=== PATIENT | female | born 1935 | race Caucasian/White ===

== ENCOUNTER 2018-01-10 18:20 | Emergency (ER) | payer OTHER ==
[~2018-01-10] VITALS: Ht 165.1 cm; Wt 68.0 kg
[2018-01-10 18:24] VITALS: Ht 165.1 cm; Wt 68.0 kg
[2018-01-10 20:19] LABS: BASOPHIL % 0.4 % (0-2); PLATELET COUNT 165 x10^3mcL (130-400)
[2018-01-10 20:20] LABS: CALCIUM 9.2 mg/dL (8.5-10.1); CARBON DIOXIDE 26.9 mmol/L (21-32); CHLORIDE SERUM 105 mmol/L (98-107); CREATININE SERUM 1.3 mg/dL (0.6-1.0); GLUCOSE SERUM 113 mg/dL (74-106); POTASSIUM SERUM 3.8 mmol/L (3.5-5.1); SODIUM SERUM 142 mmol/L (136-145)
[2018-01-10 20:21] LABS: RED CELL DISTRIBUTION WIDTH 22.5 % (11.5-14.5)
[2018-01-10 20:25] LABS: ALKALINE PHOSPHATASE 108 U/L (46-116); ALT/SGPT 20 U/L (14-59); AST/SGOT 36 U/L (15-37); LIPASE 401 IU/L (73-393); TOTAL PROTEIN, SERUM 7.2 g/dL (6.4-8.2)
[2018-01-10 20:54] LABS: CK-MB 0.8 ng/mL (0-3.6)
[2018-01-10 22:18] VITALS: BP 127/86
== END 2018-01-10 21:45 | disposition short-term general hospital (02) ==
LOC: ED 18:20
PROVIDERS: Emergency Medicine
DX: S22.41XA Multiple fractures of ribs, right side, initial encounter for closed fracture (principal); I48.91 Unspecified atrial fibrillation; I10 Essential (primary) hypertension; W01.0XXA Fall on same level from slipping, tripping and stumbling without subsequent striking against object, initial encounter; Y93.89 Activity, other specified; Y92.89 Other specified places as the place of occurrence of the external cause; Y99.8 Other external cause status
CPT/HCPCS: 83880; J3010; J3490